=== PATIENT | female | born 1975 | race Two or more races ===

== ENCOUNTER 2022-08-08 21:56 | Emergency (ER) | payer MEDICAID ==
[~2022-08-08] VITALS: Ht 160 cm; Wt 88.0 kg
[2022-08-08 22:31] VITALS: BP 159/89
[2022-08-09 00:55] LABS: EOSINOPHILS % (AUTO) 1.6 % (1.0-6.0); HEMATOCRIT 41.1 % (36-46); HEMOGLOBIN 14.1 g/dL (12.0-16.0); LYMPHOCYTES # (AUTO) 1.5 K/uL (1.0-4.8); LYMPHOCYTES % (AUTO) 34.7 % (22.0-44.0); MEAN CORPUSCULAR HEMOGLOBIN 32.1 pg (26.0-34.0); MEAN CORPUSCULAR HGB CONC 34.2 G/dL (31.0-37.0); MEAN CORPUSCULAR VOLUME 94 fL (80-100); MONOCYTES # (AUTO) 0.3 K/uL (0.1-1.0); MONOCYTES % (AUTO) 8.3 % (2.0-9.0); NEUTROPHILS # (AUTO) 2.3 K/uL (1.8-7.7); NEUTROPHILS % (AUTO) 54.4 % (40.0-70.0); PLATELET COUNT (AUTO) 326 K/uL (150-450); RED BLOOD CELL COUNT(AUTO) 4.38 MIL/uL (4.00-5.20); RED CELL DISTRIBUTION WIDTH 13.7 % (11.5-14.5)
[2022-08-09 01:08] LABS: ANION GAP 4 mmol/L (8-16); CALCIUM, TOTAL 9.6 mg/dL (8.8-10.5); CARBON DIOXIDE 31 mmol/L (22-29); CHLORIDE 103 mmol/L (98-107); CREATININE 0.73 mg/dL (0.60-1.30); GLUCOSE,RANDOM 107 mg/dL (70-110); POTASSIUM 4.4 mmol/L (3.5-5.1); SODIUM SERUM 138 mmol/L (136-145); UREA NITROGEN, BLOOD 16 mg/dL (7-18)
[2022-08-09 01:10] LABS: GLOMERULAR FILTR. RATE CALC > 60 mL/min (>60)
[2022-08-09 01:16] LABS: ALANINE AMINOTRANSFERASE 19 U/L (12-78); ALBUMIN 3.5 g/dL (3.4-5.0); ALKALINE PHOSPHATASE 90 U/L (46-116); ASPARTATE AMINOTRANSFERASE 11 U/L (15-37); BILIRUBIN,TOTAL 0.2 mg/dL (0.1-1.0); TOTAL PROTEIN, SERUM 7.6 g/dL (6.4-8.2)
== END 2022-08-09 01:58 | disposition home or self-care (01) ==
LOC: EMS 22:00 → EDSEX 22:00 → EMS 08-09 01:58
DX: F41.9 Anxiety disorder, unspecified (principal); F17.210 Nicotine dependence, cigarettes, uncomplicated; F12.90 Cannabis use, unspecified, uncomplicated; G89.29 Other chronic pain; M54.9 Dorsalgia, unspecified; M54.2 Cervicalgia; Z90.49 Acquired absence of other specified parts of digestive tract
CPT/HCPCS: 71045; 80053; 84703; 85025; 93005; 99285; 36415-L1; 36415-TC